=== PATIENT | female | born 1975 | race African-American/Black ===

== ENCOUNTER 2019-08-22 19:36 | Emergency (ER) | payer MEDICAID ==
[~2019-08-22] VITALS: Ht 154.9 cm; Wt 117.9 kg
[2019-08-22 20:26] VITALS: BP 127/48
[2019-08-22 20:50] LABS: Basophils # (auto) 0.1 uL; Eosinophils # (auto) 0.3 uL; Lymphocytes % (auto) 25.5 % (10.0-50.0); Monocytes % (auto) 8.9 % (0.0-12.0); Neutrophils % (auto) 60.8 % (37.0-80.0); Red Cell Distribution Width 16.4 % (11.8-14.3)
[2019-08-22 20:52] LABS: Basophils % (auto) 0.8 % (0.0-2.0); Hematocrit 36.6 % (36.0-46.0); Hemoglobin 11.8 g/dL (12.2-16.2); Lymphocytes # (auto) 2.2 uL; Mean Corpuscular Hemoglobin 27.3 pg (28.0-32.0); Mean Corpuscular Hgb Conc. 32.1 g/dL (32.0-36.0); Monocytes # (auto) 0.8 uL; Neutrophils # (auto) 5.2 uL; Nucleated Red Blood Cells % 0.1 %; Platelet Count (auto) 229 10^3/uL (140-450); Red Blood Cells 4.31 10^6/uL (4.0-5.20); White Blood Cell 8.5 10^3/uL (4.4-10.8)
[2019-08-22 20:59] LABS: INR 3.29 (0.9-1.15); Partial Thromboplastin Time 37.3 sec (23.64-32.05)
[2019-08-22 21:00] LABS: Albumin 3.5 g/dL (3.4-5.0); BUN/Creatinine Ratio 18.8; Calcium 8.5 mg/dL (8.5-10.1)
[2019-08-22 21:05] LABS: Bilirubin, Total 0.4 mg/dL (0.2-1.0); Total Protein 7.9 g/dL (6.4-8.2)
== END 2019-08-22 20:35 | disposition left against medical advice (07) ==
LOC: ER 19:36
DX: R07.9 Chest pain, unspecified (principal); Z53.21 Procedure and treatment not carried out due to patient leaving prior to being seen by health care provider
CPT/HCPCS: 36415; 80053; 83735; 83880; 84484; 85025; 85610; 85730; 93005